=== PATIENT | female | born 1980 | race Caucasian/White ===

== ENCOUNTER → 2017-02-10 | Outpatient (CLI) | payer BC ==
--- NOTE | 2017-02-10 16:38 | DIAGNOSTIC IMAGING REPORT ---
RIGHT HAND MIN 3 VIEWS ROUTINE CLINICAL HISTORY: R53.83, R76.8 right hand pain. Positive KACIE. COMPARISON: None. DISCUSSION: No fractures are visualized. There are no erosive or destructive changes. There are no subluxations. IMPRESSION: 1. No fractures or dislocations 2. No evidence of erosive disease Electronically signed by: Jeb Silverio M.D. 02/10/2017 4:36 PM Dictated Date/Time: 02/10/2017 4:35 PM
--- NOTE | 2017-02-10 16:38 | DIAGNOSTIC IMAGING REPORT ---
LEFT HAND MIN 3 VIEWS ROUTINE CLINICAL HISTORY: R53.83, R76.8 AND PAIN. POSITIVE KACIE COMPARISON: None. DISCUSSION: No fractures or subluxations are visualized. There is no erosive disease. IMPRESSION: 1. No fractures or dislocations 2. No evidence of erosive disease Electronically signed by: Jeb Silverio M.D. 02/10/2017 4:37 PM Dictated Date/Time: 02/10/2017 4:36 PM
== END | disposition home or self-care (01) ==
LOC: C.RAD1850 16:14
PROVIDERS: ATTEND Internal Medicine Rheumatology
DX: R53.83 Other fatigue (principal); R76.8 Other specified abnormal immunological findings in serum